=== PATIENT | male | born 1945 | race Caucasian/White ===

== ENCOUNTER → 2023-12-11 06:28 | Day surgery (SDC) | payer MEDICARE, BC, SELFPAY | LOC: GI 06:28 | PROVIDERS: ATTENDING PHYSICIAN Specialist | DX: Z12.11 Encounter for screening for malignant neoplasm of colon (principal); Z80.0 Family history of malignant neoplasm of digestive organs; Z86.010 Personal history of colon polyps; K64.8 Other hemorrhoids | CPT/HCPCS: G0105 ==

== ENCOUNTER → 2024-03-11 10:46 | Outpatient (REF) | payer MEDICARE, BC, SELFPAY | LOC: MRI 3T 10:46 | PROVIDERS: ATTENDING PHYSICIAN Orthopaedic Surgery; FAMILY PHYSICIAN Internal Medicine | DX: S86.219A Strain of muscle(s) and tendon(s) of anterior muscle group at lower leg level, unspecified leg, initial encounter (principal) | CPT/HCPCS: 73721 ==

== ENCOUNTER → 2024-08-16 16:31 | Outpatient (REF) | payer MEDICARE, BC, SELFPAY | LOC: HWRAD 16:31 | PROVIDERS: ATTENDING PHYSICIAN Internal Medicine | DX: R05.2 Subacute cough (principal) | CPT/HCPCS: 71046 ==

== ENCOUNTER → 2024-08-30 06:57 | Outpatient (REF) | payer MEDICARE, BC, SELFPAY ==
[2024-08-30 09:14] LABS: Hematocrit 43.9 % (39.0-52.0); Hemoglobin 14.4 g/dL (13.0-18.0); Mean Corp Hgb Conc. 32.8 g/dL (33.0-37.0); Mean Corpuscular Hgb 30.6 pg (27.0-31.0); Mean Corpuscular Volume 93.2 fL (80.0-94.0); Mean Platelet Volume 10.6 fL (7.4-10.4); Platelet Count 244 10^3/uL (130-400); Red Blood Cell Count 4.71 10^6/uL (4.70-6.10); Red Cell Dist. Width 12.9 % (11.5-14.5); White Blood Cell Count 3.9 10^3/uL (4.8-10.8)
[2024-08-30 09:30] LABS: Blood Urea Nitrogen 14 mg/dl (9-20); Calcium 9.3 mg/dl (8.4-10.2); Carbon Dioxide 29 mmol/L (22-30); Chloride 102 mmol/L (98-107); Glucose 85 mg/dl (70-99); Potassium 4.7 mmol/L (3.5-5.1); Sodium 138 mmol/L (135-145); eGFR > 60.00
== END ==
LOC: SDSPAT 06:57
PROVIDERS: ATTENDING PHYSICIAN Surgery; FAMILY PHYSICIAN Internal Medicine
DX: K40.20 Bilateral inguinal hernia, without obstruction or gangrene, not specified as recurrent (principal)
CPT/HCPCS: 36415; 80048; 85027; 93005

== ENCOUNTER 2024-09-15 06:02 | Day surgery (SDC) | payer BC, MEDICARE, SELFPAY ==
[2024-08-30 14:11] VITALS: BMI 22.3
[2024-09-15] VITALS (10 sets, daily range): BP systolic 114–139; BP diastolic 63–81; BMI 22.3
[2024-09-15] MEDS: TYLENOL 1000 MG PO (06:22)
[2024-09-15] MEDS: NORMOSOL-R/PLASMALYTE-A 1000 IV ×2 (06:30→09:17)
[2024-09-15] MEDS: ZOFRAN 4 MG IV (09:46)
== END 2024-09-15 12:02 | disposition home or self-care (01) ==
LOC: SDS 06:02
PROVIDERS: ATTENDING PHYSICIAN Surgery
DX: K40.20 Bilateral inguinal hernia, without obstruction or gangrene, not specified as recurrent (principal)
CPT/HCPCS: 49650; C1781

== ENCOUNTER 2024-10-30 21:00 | Emergency (ER) | payer BC, MEDICARE, SELFPAY ==
[2024-10-30 21:13] VITALS: BP 133/78
[2024-10-30 21:47] LABS: Urine Albumin Negative (Neg - Trace); Urine Bilirubin Negative (Negative); Urine Character Clear (Clear); Urine Color Straw; Urine Glucose Negative (Negative); Urine Ketone Negative (Negative); Urine Leukocyte Negative (Negative); Urine Nitrite Negative (Negative); Urine Occult Blood Negative (Negative); Urine Urobilinogen Negative (Neg - 1+)
[2024-10-30 21:48] LABS: % Eosinophils 4.1 % (0-6); % Immature Granulocytes 0.2 % (0-0.5); % Lymphocytes 24.5 % (20.5-51.1); % Monocytes 14.3 % (1.7-9.3); % Neutrophils 55.9 % (42.2-75.2); Absolute Basophils 0.1 10^3/uL (0-0.2); Absolute Eosinophils 0.2 10^3/uL (0-0.7); Absolute Lymphocytes 1.2 10^3/uL (1.2-3.4); Absolute Monocytes 0.7 10^3/uL (0.1-0.6); Absolute Neutrophils 2.7 10^3/uL (1.4-6.5); Hematocrit 40.8 % (39.0-52.0); Mean Corp Hgb Conc. 34.3 g/dL (33.0-37.0); Mean Corpuscular Hgb 31.1 pg (27.0-31.0); Mean Corpuscular Volume 90.7 fL (80.0-94.0); Mean Platelet Volume 9.6 fL (7.4-10.4); Nucleated Red Blood Cells % 0 % (-); Platelet Count 235 10^3/uL (130-400); Red Cell Dist. Width 13.3 % (11.5-14.5); White Blood Cell Count 4.9 10^3/uL (4.8-10.8)
[2024-10-30 22:05] LABS: ALT (SGPT) 15 U/L (0-50); AST (SGOT) 25 U/L (17-59); Albumin 3.6 g/dl (3.5-5.0); Alkaline Phosphatase 121 U/L (38-126); Blood Urea Nitrogen 16 mg/dl (9-20); Calcium 8.9 mg/dl (8.4-10.2); Carbon Dioxide 26 mmol/L (22-30); Chloride 105 mmol/L (98-107); Glucose 94 mg/dl (70-99); Potassium 4.3 mmol/L (3.5-5.1); Sodium 137 mmol/L (135-145); Total Bilirubin 0.4 mg/dl (0.2-1.3); Total Protein 6.1 g/dl (6.3-8.2); eGFR > 60.00
[2024-10-31 01:30] VITALS: BMI 23.0
[2024-10-31 01:53] VITALS: BP 152/85
[2024-10-31 02:12] LABS: Lipase 153 U/L (23-300)
--- NOTE | 2024-10-31 02:54 | ED.GENMED ---
History of Present Illness
General
Chief Complaint: Abdominal Pain
Source: patient and previous radiology exam (Prior MRI abdomen with and without contrast August 2022.)
Exam Limitations: none
Time Seen by Provider: 10/31/24 01:29
Nursing documentation reviewed up to this point in time: agreed with
History of Present Illness
History of Present Illness:
This is a 78-year-old gentleman with remote history of cholecystectomy, history of constipation, GERD. He has history of intermittent episodes of severe generalized mid to upper abdominal pain that radiates to bilateral posterior flank region that
began several years ago, intermittent episodes in nature generally occurring every 3 to 4 months. He follows with GI, Dr. Camara and has had several unremarkable outpatient imaging studies including abdominal ultrasound and MRI of the abdomen with
and without contrast August 2022. MRI showed no evidence of intrahepatic bile duct dilatation but did show that common bile duct is mildly dilated near the head of the pancreas without evidence of bile duct calculus. Chronic scarring of the left
kidney.
Patient notes similar episode of abdominal pain 5 days ago that lasted over 24 hours. Abdominal pain then recurred this morning and has been persistent throughout the day. No associated nausea or vomiting, no diarrhea or constipation. He states
he passed a normal soft bowel movement x 2 today. Pain did briefly subside this afternoon but then recurred after dinner. Generally pain is not worsened nor improved with meals. No chest pain, no dysuria and urgency and or hematuria. No fever
nor chills.
He has a follow-up MRI scheduled for December.
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
Currently pain has markedly improved but has not completely resolved.
Past History
Past History
ED Past Medical History: GERD and Other (Constipation, restless leg syndrome, BPH)
ED Past Surgical History: Cholecystectomy and Orthopedic
Social History
Tobacco: Non-smoker
Alcohol: Occasional
Drug: None
Personal:
Living: with family
Employment: Retired
Family History
Family History: Other (Noncontributory)
Phy Exam
Physical Exam
Physical Exam:
GENERAL: 78-year-old gentleman appears his stated age, awake and alert, mildly anxious, easily communicative.
EYE: anicteric
NECK: Supple, nontender, no meningismus, no significant adenopathy.
ENT: oral mucosa is moist. No rhinorrhea.
CARDIAC: Regular rate and rhythm. no murmur.
LUNGS: Clear breath sounds bilaterally, no acute respiratory distress, no wheezes/rales/rhonchi
ABDOMEN: Soft, nondistended, mild tenderness left mid to left lower quadrant as well as mild tenderness suprapubic and right lower quadrant. No palpable masses. No r/g, no cvat. Mildly hypoactive bowel sounds.
NEUROLOGICAL: Alert and oriented x3, no focal neuro deficits. Gait is steady.
SKIN: Warm and dry, normal color, skin intact. No rash.
MUSCULOSKELETAL: No C/C/E. peripheral pulses are full and equal b/l. No palpable tenderness.
PSYCH: Normal and appropriate interaction.
Course
Orders/Labs/Results
Orders:
Orders
10/30/24 21:19
Electrocardiogram (*1) Urgent
Reason for Study: Abdominal Pain
10/30/24 21:20
EKG- Treatment ONCE
10/30/24 21:38
Complete Blood Count/With Diff Urgent
Comprehensive Metabolic Panel Urgent
Lipase Urgent
Urinalysis Reflex To Culture Urgent
Date Specimen was Collected: 10/30/24
Time Specimen was Collected: 21:20
10/31/24 01:30
Add On- LAB Urgent
Tests Added?: lipase
10/31/24 01:49
CT Abd/pelvis W Iv Cont Urgent
Comment:
Reason For Exam: gen mid to lower abd pain, rad to back
Abnormal Lab Results
10/30/24
21:38
RBC 4.50 L 10^6/uL
(4.70-6.10)
MCH 31.1 H pg
(27.0-31.0)
Absolute Monos (auto) 0.7 H 10^3/uL
(0.1-0.6)
Monocytes % 14.3 H %
(1.7-9.3)
Total Protein 6.1 L g/dl
(6.3-8.2)
10/30/24 21:38
10/30/24 21:38
Vital Signs
Initial and Last Documented VS:
Initial Vital Signs
Temp Pulse Resp BP Pulse Ox
98.7 F 69 18 133/78 97
10/30/24 21:13 10/30/24 21:13 10/30/24 21:13 10/30/24 21:13 10/30/24 21:13
Last Documented Vital Signs
Temp Pulse Resp BP Pulse Ox
98.7 F 69 18 152/85 96
10/30/24 21:13 10/30/24 21:13 10/30/24 21:13 10/31/24 01:53 10/31/24 04:00
MDM/Problems Addressed
Differential Diagnosis Includes:
Concern for constipation, diverticulitis, bowel obstruction,, bile duct stone, pancreatitis, ureteric stone is less likely.
No risk factors for ASCVD, ischemic bowel is much less likely.
Thus far labs are unremarkable. Will add lipase. Urinalysis is unremarkable.
Will check CT abdomen pelvis with IV contrast.
*Radiology
Radiology exam reviewed: radiology read reviewed
*Critical Care Note
Total Time (30-74mins, 75-104mins- exclusive of procedures): Not Applicable
Update Note
Update Note:
04:15
CAT scan shows no acute intra-abdominal pathology.
There is note of large stool burden concerning for constipation. No rectal fecal impaction. No bowel obstruction.
I suspect intermittent abdominal pain may be irritable bowel with constipation related.
Patient maintained on Metamucil, 2 teaspoons 3 times daily. Recommend he add MiraLAX daily.
Follow-up with GI for recheck.
ED Attending Note
-
Portions of this chart may have been created with voice recognition software.� Occasional wrong word or��sound alike� substitutions may have occurred due to the inherent limitations of voice recognition software.
Discharge Plan
Departure
Patient Disposition: Home (Routine Discharge)
Date of Disposition: 10/31/24
Time of Disposition: 04:17
Patient with high blood pressure during this ER visit?: No
Condition: Good
Discharge Problem:
Irritable bowel syndrome with constipation
Instructions: Irritable bowel syndrome, Constipation in adults - ED discharge instructions
Prescriptions:
No Action
cyanocobalamin (vitamin B-12) [Vitamin B-12] 500 mcg Tablet
500 mcg PO QPM
esomeprazole magnesium 40 mg capsule,delayed release(DR/EC)
40 mg PO DAILY
ropinirole 0.5 mg Tablet
0.5 mg PO HS
finasteride 1 mg tablet
1 mg PO DAILY
alfuzosin 10 mg Tablet Extended Release 24 Hr
10 mg PO HS
acetaminophen [acetaminophen] 325 mg tablet
650 mg PO Q4HPRN PRN (Reason: mild pain) Qty: 1 0RF
ibuprofen 200 mg tablet
400 - 600 mg PO Q6HPRN PRN (Reason: moderate pain) Qty: 1 0RF
Referrals:
Enrique Camara MD [Active] - Call in 1-3 days for appt
Geovany Mora MD [Family Provider] -
Activity Restrictions/Additional Instructions:
Continue your fiber supplement/Metamucil 3 times daily and along with this I want you to add MiraLAX 1 capful mixed in water daily.
Interventions
Interventions:
*Risk Screen - Suicide Last Done: 10/30/24 21:17
*General Assessment Last Done: 10/31/24 01:31
*Neglect/Abuse Screening Last Done: 10/30/24 21:17
*ED- Fall Risk Assessment Last Done: 10/31/24 01:31
*ED COVID-19 Vaccine History Last Done: 10/31/24 01:31
*Nursing Disposition Last Done: 10/31/24 04:10
NL-Cdxqoa-Gixejfoznb Assessment Last Done: 10/31/24 01:31
Discharge Date and Time
Discharge Date/Time: 10/31/24 04:10
Print Language: GERMAN
== END 2024-10-31 04:10 | disposition home or self-care (01) ==
LOC: EMR 21:00
PROVIDERS: Emergency Medicine; EMERGENCY PHYSICIAN Emergency Medicine; FAMILY PHYSICIAN Internal Medicine
DX: K58.1 Irritable bowel syndrome with constipation (principal); K21.9 Gastro-esophageal reflux disease without esophagitis; G25.81 Restless legs syndrome; N40.0 Benign prostatic hyperplasia without lower urinary tract symptoms; Z90.49 Acquired absence of other specified parts of digestive tract
CPT/HCPCS: 99284; 74177; 80053; 81003; 83690; 85025; 93005; Q9967

== ENCOUNTER → 2024-12-21 08:34 | Outpatient (REF) | payer MEDICARE, BC, SELFPAY | LOC: MRI 3T 08:34 | PROVIDERS: ATTENDING PHYSICIAN Specialist; FAMILY PHYSICIAN Internal Medicine | DX: R10.13 Epigastric pain (principal) | CPT/HCPCS: 74183; A9585 ==

== ENCOUNTER → 2025-05-30 08:43 | Outpatient (REF) | payer MEDICARE, BC, SELFPAY | LOC: RAD 08:43 | PROVIDERS: ATTENDING PHYSICIAN Specialist; FAMILY PHYSICIAN Internal Medicine | DX: R10.9 Unspecified abdominal pain (principal) | CPT/HCPCS: 74246; 74248 ==